=== PATIENT | male | born 1975 | race Hispanic/Latino ===

== ENCOUNTER 2018-03-11 22:06 | Emergency (ER) | payer OTHER ==
[2018-03-11 23:03] LABS: BASOPHILS % (AUTO) 0.6 % (0.0-5.0); EOSINOPHILS % (AUTO) 0.3 % (0.0-8.0); HEMATOCRIT 41.4 % (42-54); LYMPHOCYTES % (AUTO) 26.7 % (21.0-51.0); MEAN CORPUSCULAR HEMOGLOBIN 31.2 pg (27.0-33.0); MEAN CORPUSCULAR VOLUME 89.1 fL (79-99); MONOCYTES % (AUTO) 9.3 % (3.0-13.0); NEUTROPHILS % (AUTO) 63.1 % (40.0-77.0); NUCLEATED RED BLOOD CELLS 0.1 % (0.0-0.19); PLATELET COUNT (AUTO) 181 K/uL (130-400); RED BLOOD CELL COUNT(AUTO) 4.65 MIL/uL (4.50-6.20); RED CELL DISTRIBUTION WIDTH 12.6 % (11.0-15.5); WHITE BLOOD COUNT (AUTO) 7.9 K/uL (4.8-10.8)
[2018-03-11 23:14] LABS: INR 0.95 (0.85-1.15); PARTIAL THROMBOPLASTIN TIME 30.1 SEC (26.3-35.5)
[2018-03-11 23:38] LABS: CREATININE 1.1 mg/dL (0.5-1.5); POTASSIUM 3.4 mmol/L (3.5-5.1)
[2018-03-11 23:44] LABS: ALBUMIN 3.5 g/dL (3.5-5.0); BILIRUBIN,TOTAL 0.3 mg/dL (0.2-1.0); TOTAL PROTEIN, SERUM 7.2 g/dL (6.0-8.3)
[2018-03-12] MEDS ORDERED: KETOROLAC TROMETHAMINE 30MG/ML ONE (00:15)
== END 2018-03-12 01:18 | disposition home or self-care (01) ==
LOC: EDH 22:06
DX: M79.631 Pain in right forearm (principal); I10 Essential (primary) hypertension; I48.91 Unspecified atrial fibrillation; Z79.01 Long term (current) use of anticoagulants
CPT/HCPCS: 36415; 71045; 73080; 80053; 82550; 84484; 85025; 85610; 85730; 93005; 93971; 99284; J1885

== ENCOUNTER 2018-05-30 18:20 | Emergency (ER) | payer OTHER ==
[2018-05-30] MEDS ORDERED: ASPIRIN 325 MG TABLET ONE (18:46)
[2018-05-30 19:07] LABS: BASOPHILS % (AUTO) 1.1 % (0.0-5.0); EOSINOPHILS % (AUTO) 0.3 % (0.0-8.0); HEMATOCRIT 44.1 % (42-54); LYMPHOCYTES % (AUTO) 23.4 % (21.0-51.0); MEAN CORPUSCULAR HEMOGLOBIN 30.4 pg (27.0-33.0); MEAN CORPUSCULAR HGB CONC 34.1 g/dL (32.0-36.0); MEAN CORPUSCULAR VOLUME 89.3 fL (79-99); MONOCYTES % (AUTO) 6.3 % (3.0-13.0); NEUTROPHILS % (AUTO) 68.9 % (40.0-77.0); NUCLEATED RED BLOOD CELLS 0.1 % (0.0-0.19); PLATELET COUNT (AUTO) 193 K/uL (130-400); RED BLOOD CELL COUNT(AUTO) 4.94 MIL/uL (4.50-6.20); RED CELL DISTRIBUTION WIDTH 13.1 % (11.0-15.5); WHITE BLOOD COUNT (AUTO) 5.6 K/uL (4.8-10.8)
[2018-05-30 19:13] LABS: CREATININE 1.2 mg/dL (0.5-1.5); POTASSIUM 3.7 mmol/L (3.5-5.1)
[2018-05-30 19:17] LABS: INR 0.95 (0.85-1.15); PARTIAL THROMBOPLASTIN TIME 31.8 SEC (26.3-35.5)
[2018-05-30 19:37] LABS: ALBUMIN 3.9 g/dL (3.5-5.0); BILIRUBIN,TOTAL 0.5 mg/dL (0.2-1.0); TOTAL PROTEIN, SERUM 7.9 g/dL (6.0-8.3)
== END 2018-05-30 21:31 | disposition home or self-care (01) ==
LOC: EDH 18:20
DX: R07.2 Precordial pain (principal); I48.91 Unspecified atrial fibrillation; I10 Essential (primary) hypertension
CPT/HCPCS: 36415; 71045; 80053; 82550; 83874; 83880; 84484; 85025; 85610; 85730; 93005

== ENCOUNTER 2024-08-13 20:58 | Inpatient (IN) | payer OTHER ==
[~2024-08-13] VITALS: Ht 175.3 cm; Wt 196.9 kg
[2024-08-13 21:37] LABS: BASOPHILS # (AUTO) 0.03 K/uL (0.00-0.20); BASOPHILS % (AUTO) 0.5 % (0.0-5.0); EOSINOPHILS # (AUTO) 0.09 K/uL (0.00-0.70); EOSINOPHILS % (AUTO) 1.6 % (0.0-8.0); HEMATOCRIT 43.1 % (42-54); IMMATURE GRANULOCYTE ABSOLUTE 0.01 K/uL (0-1); LYMPHOCYTES % (AUTO) 17.6 % (21.0-51.0); MEAN CORPUSCULAR HEMOGLOBIN 29.7 pg (27.0-33.0); MEAN CORPUSCULAR HGB CONC 32.5 g/dL (32.0-36.0); MEAN CORPUSCULAR VOLUME 91.3 fL (79-99); MONOCYTES # (AUTO) 0.4 K/uL (0.1-1.0); MONOCYTES % (AUTO) 7.7 % (3.0-13.0); NEUTROPHILS % (AUTO) 72.4 % (40.0-77.0); PLATELET COUNT (AUTO) 205 K/uL (130-400); RED BLOOD CELL COUNT(AUTO) 4.72 MIL/uL (4.50-6.20); RED CELL DISTRIBUTION WIDTH 13.2 % (11.0-15.5); WHITE BLOOD COUNT (AUTO) 5.5 K/uL (4.8-10.8)
--- NOTE | 2024-08-13 21:49 | EKG ---
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
[2024-08-13 21:52] LABS: POTASSIUM 3.7 mmol/L (3.5-5.1)
--- NOTE | 2024-08-13 22:25 | ERN ---
General Chief Complaint: Other Problems Stated Complaint: LIGHT HEADED, HTN AT HOME APPROX 2030 Time Seen by MD: 21:09 Time Seen by Midlevel: 21:09 Source: patient History of Present Illness Initial Comments The patient is a morbidly obese 48-year-old male with a past medical history of atrial fibrillation, hypertension, and sleep apnea presenting to the emergency department for evaluation of dizziness and high blood pressure. The patient states he was watching TV when he became dizzy. He proceeded to check his blood pressure and it was over 180 systolic so he decided to report to the ER for further evaluation. On arrival he does report feeling slightly improved. Current medications include lisinopril and Eliquis 2.5 mg twice a day. Allergies: Coded Allergies: No Known Allergies (Unverified Allergy, Unknown, 11/26/18) Past Medical History Past Medical History: A-Fib, Hypertension, Other Medical History Other: SLEEP APNEA Past Surgical History: None ROS Dictation CONSTITUTIONAL: Negative except for HPI HEAD/FACE: Negative except for HPI EENT: Negative except for HPI RESPIRATORY: Negative except for HPI GASTROINTESTINAL/ABDOMINAL: Negative except for HPI GENITOURINARY: Negative except for HPI MUSCULOSKELETAL: Negative except for HPI INTEGUMENTARY: Negative except for HPI NEUROLOGICAL/PSYCH: Negative except for HPI HEMATOLOGIC/LYMPHATIC: Negative except for HPI All Systems Negative, Except as noted above. 13 point review of systems assessed and all negative except for above. Physical Exam Physical Exam Dictation Vital Signs reviewed General Appearance: Alert, oriented x 3, no acute distress, well developed, nourished. Head and Face: non-traumatic. Eyes: PERRL, pink conjunctivas, eyelid no trauma, anterior chamber with arcus senilis. Ears: Pinnas intact and no signs of trauma or erythema ear canals clear and no discharge TM no erythema Nose: No discharge, no bleeding. Oropharynx: Mouth normal, tongue pink, pharynx clear,no erythema, tonsils no exudates, no abscesses noted, mucous membrane moist Neck: Supple, non-tender, no thyromegaly, no masses, no JVD, no bruits Breast:Deferred Chest:No tenderness, no crepitus, no paradoxical movement, no retractions Lungs:Clear, well-ventilated, symmetric, no rales, no wheezing, no rhonchi, no stridor, good breath sounds bilaterally Heart: Regular rate, regular rhythm, no murmur, no gallops Vascular: no peripheral edema, Abdomen: Soft, positive bowel sounds, nondistended, no guarding, nontender, no rebound, no masses no hepatomegaly, no splenomegaly, no Cook's sign, no hernias. Rectal: Deferred Genital: Deferred Neurological: Normal speech, motor function intact, sensory function intact Musculoskeletal: Neck nontender, full range of motion, back nontender, full range of motion, Extremities: nontender, full range of motion Skin: Color pink, dry, no turgor, no rash, no lacerations, no abrasions, no contusions. Lymphatic: Deferred Results Laboratory and Microbiology Lab and Micro Result Laboratory Tests Test 08/13/24 21:30 White Blood Count 5.5 K/uL (4.8-10.8) Red Blood Count 4.72 MIL/uL (4.50-6.20) Hemoglobin 14.0 g/dL (14.0-18.0) Hematocrit 43.1 % (42-54) Mean Corpuscular Volume 91.3 fL (79-99) Mean Corpuscular Hemoglobin 29.7 pg (27.0-33.0) Mean Corpuscular Hemoglobin Concent 32.5 g/dL (32.0-36.0) Red Cell Distribution Width 13.2 % (11.0-15.5) Platelet Count 205 K/uL (130-400) Mean Platelet Volume 10.2 fL (7.5-10.5) Immature Granulocyte % (Auto) 0.2 % (0-1) Neutrophils (%) (Auto) 72.4 % (40.0-77.0) Lymphocytes (%) (Auto) 17.6 % (21.0-51.0) L Monocytes (%) (Auto) 7.7 % (3.0-13.0) Eosinophils (%) (Auto) 1.6 % (0.0-8.0) Basophils (%) (Auto) 0.5 % (0.0-5.0) Neutrophils # (Auto) 4.0 K/uL (1.8-7.7) Lymphocytes # (Auto) 1.0 K/uL (1.0-4.8) Monocytes # (Auto) 0.4 K/uL (0.1-1.0) Eosinophils # (Auto) 0.09 K/uL (0.00-0.70) Basophils # (Auto) 0.03 K/uL (0.00-0.20) Absolute Immature Granulocyte (auto 0.01 K/uL (0-1) Nucleated Red Blood Cells 0.0 % (0.0-0.19) Sodium Level 142 mmol/L (136-145) Potassium Level 3.7 mmol/L (3.5-5.1) Chloride Level 107 mmol/L (101-111) Carbon Dioxide Level 33 mmol/L (21-32) H Blood Urea Nitrogen 12 mg/dL (7-18) Creatinine 1.0 mg/dL (0.5-1.3) Glomerular Filtration Rate Calc 94 mL/min (>90) Random Glucose 173 mg/dL (70-105) H Total Calcium 8.4 mg/dL (8.5-10.1) L Magnesium Level 2.00 mg/dL (1.80-2.40) Troponin I High Sensitivity 120 ng/L (4-75) *H Labs Reviewed?: Yes MDM MDM: The patient is a morbidly obese 48-year-old male with a past medical history of atrial fibrillation, hypertension, and sleep apnea presenting to the emergency department for evaluation of dizziness and high blood pressure. The patient states he was watching TV when he became dizzy. He proceeded to check his blood pressure and it was over 180 systolic so he decided to report to the ER for further evaluation. On arrival he does report feeling slightly improved. Current medications include lisinopril and Eliquis 2.5 mg twice a day. Blood pressure on arrival was 118/74. Heart rate was 83 beats per minute. O2 saturation is 97% on room air. On physical examination the patient is in no acute distress. Neurological examination is unremarkable. His initial EKG showed normal sinus rhythm with a ventricular rate of 72 beats per minute. No bundle branch blocks, no ST elevations. CBC shows no leukocytosis, no anemia, no thrombocytopenia. Chemistries are stable. Initial troponin is elevated at 120. We will admit for elevated troponin. We will need to trend and consult Cardiology in the morning. Differential diagnosis: Acute coronary syndrome, cardiac arrhythmia, Rationale: Tests considered and ordered secondary to shared decision making include: Previous outside records reviewed: Old ER visits. Risk of complication and/or morbidity or mortality of patient management: None Medications-Per medication reconciliation Need for hospitalization: Patient does meet criteria for hospitalization. Need for emergency major/minor surgery: No There are no social concerns with this patient. Prescription drug management Prescriptions will include symptomatic care Patient's prior external medical records from other ER visits were reviewed by me as indicated. Prior testing and results from previous visits were reviewed. Prior tests were taken into account with medical decision making and resource utilization, independent historian/historians were used to obtain complete medical history. I independently interpreted the test that were performed, results were reviewed by me and considered findings on radiology if ordered. Medical management and examination interpretation discussions were had by me with other qualified healthcare professionals as indicated for the patient's care. ED Course Orders Procedure Category Date Status Time Cbc With Differential LAB 08/13/24 Complete 21:20 Basic Metabolic Panel LAB 08/13/24 Complete 21:20 Troponin I High LAB 08/13/24 Complete Sensitivity 21:20 Magnesium LAB 08/13/24 Complete 21:20 12 Lead Ekg Tracing- EKG 08/13/24 Complete Technical 21:20 Vital Signs Date Time Temp Pulse Resp B/P (MAP) Pulse Ox O2 Delivery O2 Flow Rate FiO2 08/13/24 21:37 98.2 72 18 162/89 96 Room Air* 0 21 08/13/24 21:00 98.8 83 16 118/74 97 Room Air 0 DX & DISP Disposition: Inpatient Decision to Admit Date: August 13, 2024 Departure Impression: Primary Impression: Elevated troponin Condition: Stable Referrals: SELF,REFERRAL (PCP) Time of Disposition: 22:24 I have reviewed the case, and I agree with, Diagnosis and Plan I performed the substantive portion of the visit. I have reviewed and personally made and approve the management plan that is documented in the note by myself or the JEFFERSON. I acknowledge for responsibility for the patient's management plan. ARIELLE FONSECA August 13, 2024 22:25
[2024-08-13] MEDS ORDERED: morPHINE 4 MG SYG IVP PRN (23:00)
[2024-08-13] MEDS ORDERED: ondanSETRON 4MG INJ IV PRN (23:00)
[2024-08-13] MEDS ORDERED: acetaMINOPHEN 325 MG TAB PO PRN (23:00)
[2024-08-13] MEDS ORDERED: hydrALAZine 20MG/ML VIAL IV PRN (23:00)
--- NOTE | 2024-08-13 23:03 | HP ---
History of Present Illness Reason for Visit: lightheadedness History of Present Illness Mr. Cosby is a 48-year-old male that was seen and examined today on 08/13/2024. Patient is a good historian of personal health Patient states that he came to the emergency department with a chief complaint of lightheadedness. Onset was 1900. Location is to head. Duration is constant, dizziness waxes and wanes. Character is described as, " unbalanced. "There was no alleviating factors. There was no aggravating factors. Patient denies any associated chest pain or shortness and breath. Today in the emergency department CBC unremarkable, chemistry unremarkable, troponin mildly elevated at 120, no urinalysis has been collected or sent to lab. No diagnostic radiographic imaging has been ordered. Emergency room physician recommended that patient be admitted with a diagnosis of elevated troponin Past Medical History ADDITIONAL PAST MEDICAL HISTORY: [Atrial fibrillation, hypertension, ZEYNEP] SOCIAL HISTORY: [Negative for smoking, alcohol use, drug use. Patient lives with his mom Lazara Cosby. Patient is typically independent of all his ADLs. Patient denies difficulty pain is bills. Patient has good access to health care through his insurance. 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 Dyspnea, Edema, Other Gastrointestinal: No: Nausea, Vomiting, Abdominal Pain, Diarrhea, Constipation, Melena, Hematochezia, Other Genitourinary: No Dysuria, No Frequency, No Incontinence, No Hematuria, No Retention, No Other Musculoskeletal: No: other, neck pain, shoulder pain, arm pain, back pain, hand pain, leg pain, foot pain Skin: No Urticaria, No Rash, No Other Neurological: No: Weakness, Numbness, Incoordination, Change in speech, Confusion, Seizures, Other Allergies: Coded Allergies: No Known Allergies (Unverified Allergy, Unknown, 11/26/18) Exam Vital Signs Vital Signs Date Time Temp Pulse Resp B/P (MAP) Pulse Ox O2 Delivery O2 Flow Rate FiO2 08/13/24 21:37 98.2 72 18 162/89 96 Room Air* 0 21 General Appearance: Alert, Oriented X3, Cooperative, No acute distress HEENT: Atraumatic, EOMI, Mucous membr. moist/pink Respiratory: Clear to auscultation, Normal air movement, NL respiratory effort Cardiovascular: Regular rate, Regular rhythm, Normal S1, Normal S2 Abdominal: Normal bowel sounds, Soft, No tenderness Extremities: No edema Skin: No rashes, No breakdown, No significant lesion Neuro: Normal gait, Normal speech, Strength at 5/5 X4 ext, Sensation intact, Cranial nerves 3-12 NL Psych/Mental Status: Mental status NL, Mood NL, Thoughts/Content NL Assessment/Plan ASSESSMENT: [ Elevated troponin, POA Hypertension Atrial fibrillation ZEYNEP] PLAN: [ Admit patient to medical floor as inpatient status. Place patient on telemetry monitoring. Elevated troponin: Administer aspirin 162 mg by mouth times 1 dose Continue aspirin 81 mg by mouth once daily Nitropaste 0.5 inches anterior chest wall every 8 hours Trend troponin every 6 hours x 3 sets Supplemental oxygen to maintain O2 saturation greater than 92% Consult cardiology if any elevation in troponin or troponin uptrending Hypertension, atrial fibrillation, ZEYNEP: Consider resuming home medications once they have been reconciled. For now CPAP per home settings Hydralazine 10 mg IV every 4 hours for systolic blood pressure greater than 160 mmHg Metoprolol 12.5 mg by mouth twice daily Administer metoprolol 5 mg IV every 5 minutes as needed for AFib RVR with heart rate greater than 120 beats per minute max three doses. GI prophylaxis, famotidine DVT prophylaxis, resume patient's home dose of DOAC Eliquis 2.5 mg twice daily ADVANCED CARE PLANNING 1. Which of the following were discussed? Hospice Care - Yes Therapeutic options - Yes Advance Directives - Yes -patient states that he does not have any advance directives in place at this time, however his mom can make decisions for him if he becomes unable. Other discussions - patient wishes to remain a full code at this time 2. Discussed with who? Patient 3. Voluntary nature of this service was explained to the patient? Yes 4. Amount of time spent - _ 16 minutes 5. Reviewed by Physician? (if this service was performed by NPP) Yes This document was generated in part using voice recognition software, occasional wrong word or sound alike substitutions may have occurred due to the inherent limitations of voice recognition software. Read the chart carefully and recognize using context, where the substitutions have occurred. Although every effort was made to edit the content, panel monitor and typing errors may occur ATTESTATION BY PHYSICIAN I have seen and examined the patient. I reviewed the documentation, medical decision making, and treatment plan as noted by the mid-level provider above. I agree with the findings and plan of care. WOO ALBERTO [facility] August 13, 2024 23:03
[2024-08-13] MEDS ORDERED: metoPROLOL tartRATE 1 MG/ML 5ML VIAL IV PRN (23:30)
[2024-08-13] MEDS: PHARMACY COMMUNICATION MISC ONE (23:49)
--- NOTE | 2024-08-13 23:52 | NUR ---
REPORT GIVEN TO TYRON CHICAS AT THIS TIME
[2024-08-13] MEDS: NITROGLYCERIN 1GM OINT 1 INCH/1GM TD SCH (23:53)
[2024-08-13] MEDS: ASPIRIN 81MG CHEW TAB PO ONE (23:53)
[2024-08-14] VITALS (7 sets, daily range): BP systolic 139–174; BP diastolic 79–107; PULSE 58–90; RESP 20–22; TEMP 97.8–98.8; O2SAT 98
[2024-08-14] MEDS ORDERED: APIX5TAB PO (02:32)
[2024-08-14] MEDS ORDERED: LISI40TA9 PO (02:32)
[2024-08-14] MEDS ORDERED: METO50 PO (02:32)
[2024-08-14] MEDS ORDERED: HYDR25TA PO (02:32)
[2024-08-14] MEDS ORDERED: HYDR50TA36 PO (02:32)
[2024-08-14] MEDS ORDERED: AMLO-258 PO (02:32)
[2024-08-14 03:01] LABS: APPEARANCE,URINE CLEAR (CLEAR); BILIRUBIN,URINE NEGATIVE (NEGATIVE); COLOR,URINE LIGHT-YELLOW (YELLOW); GLUCOSE, URINE (UA) NEGATIVE (NEGATIVE); KETONES,URINE NEGATIVE (NEGATIVE); LEUKOCYTE ESTERASE ,URINE NEGATIVE Leu/uL (NEGATIVE); NITRATE,URINE NEGATIVE (NEGATIVE); OCCULT BLOOD,URINE NEGATIVE (NEGATIVE); PROTEIN,URINE NEGATIVE (NEGATIVE); UROBILINOGEN,URINE 3 mg/dL (0.2-1.0)
[2024-08-14 03:07] LABS: ADD UA MICROSCOPIC YES
[2024-08-14 03:08] LABS: AMPHET/METH SCREEN,URINE NEGATIVE (NEGATIVE); BARBITURATE SCREEN, URINE NEGATIVE (NEGATIVE); BENZODIAZEPINES SCREEN,URINE NEGATIVE (NEGATIVE); CANNABINOID SCREEN,URINE NEGATIVE (NEGATIVE); COCAINE SCREEN,URINE NEGATIVE (NEGATIVE); MUCUS,URINE RARE LPF (None Seen); OPIATE SCREEN,URINE NEGATIVE (NEGATIVE); PHENCYCLIDINE SCREEN,URINE NEGATIVE (NEGATIVE); RBC,URINE 0-1 /HPF (0-1); WBC,URINE 0-1 /HPF (0-1)
[2024-08-14 06:27] LABS: BASOPHILS # (AUTO) 0.03 K/uL (0.00-0.20); BASOPHILS % (AUTO) 0.5 % (0.0-5.0); EOSINOPHILS # (AUTO) 0.06 K/uL (0.00-0.70); HEMATOCRIT 41.3 % (42-54); IMMATURE GRANULOCYTE ABSOLUTE 0.02 K/uL (0-1); LYMPHOCYTES # (AUTO) 1.6 K/uL (1.0-4.8); LYMPHOCYTES % (AUTO) 27.3 % (21.0-51.0); MEAN CORPUSCULAR HEMOGLOBIN 29.8 pg (27.0-33.0); MEAN CORPUSCULAR HGB CONC 32.7 g/dL (32.0-36.0); MEAN CORPUSCULAR VOLUME 91.2 fL (79-99); MONOCYTES # (AUTO) 0.6 K/uL (0.1-1.0); MONOCYTES % (AUTO) 9.6 % (3.0-13.0); NEUTROPHILS # (AUTO) 3.6 K/uL (1.8-7.7); NEUTROPHILS % (AUTO) 61.3 % (40.0-77.0); PLATELET COUNT (AUTO) 214 K/uL (130-400); RED BLOOD CELL COUNT(AUTO) 4.53 MIL/uL (4.50-6.20); RED CELL DISTRIBUTION WIDTH 13.3 % (11.0-15.5); WHITE BLOOD COUNT (AUTO) 5.8 K/uL (4.8-10.8)
[2024-08-14 06:49] LABS: CREATININE 0.8 mg/dL (0.5-1.3); MAGNESIUM 2.2 mg/dL (1.80-2.40); PHOSPHORUS 3.3 mg/dL (2.5-4.9); POTASSIUM 3.7 mmol/L (3.5-5.1)
--- NOTE | 2024-08-14 08:27 | HMCIMG ---
CHEST 1VW HISTORY: Dizziness COMPARISON: August 26, 2018 FINDINGS: A frontal projection of the chest was obtained. Prominent interstitial markings are seen with possible superimposed infiltrates. The heart is enlarged. Degenerative changes are seen. No evidence of aortic calcification is seen. IMPRESSION: 1. Prominent interstitial markings are seen with possible superimposed infiltrates.
[2024-08-14] MEDS: ASPIRIN 81 MG EC TAB PO SCH (09:36)
[2024-08-14] MEDS: metoPROLOL tartRATE 25 MG TAB PO SCH (09:36)
[2024-08-14] MEDS: FAMOTIDINE 20MG TAB PO SCH (09:36)
[2024-08-14] MEDS: APIXaban 5 MG TABLET PO SCH (09:37)
--- NOTE | 2024-08-14 13:15 | PN ---
[facility] PROGRESS NOTE Date of Service: August 14, 2024 Time of Service: 13:14 SUBJECTIVE: [ ] 08/14/24 patient was seen and examined. Case discussed with RN and family by the bedside. He feels slightly better blood pressure is under better control. Ms. Troponin is slightly elevated and we will have Cardiology evaluate the patient for optimization REVIEW OF SYSTEMS CONSTITUTIONAL: Denies fevers, chills, or night sweats. No unintentional weight loss reported. NEUROLOGICAL: Denies headache, amaurosis fugax, motor weakness, sensory deficit, vertigo/spinning sensation, gait abnormalities, or tremors. ENT: No hearing loss, otalgia, otorrhea, rhinitis, rhinorrhea, hoarseness, or sore throat. CARDIOVASCULAR: Denies any exertional angina, dyspnea on exertion, orthopnea, paroxysmal nocturnal dyspnea, palpitations, life-threatening arrhythmias, claudication. PULMONARY: Denies any shortness of breath, cough, phlegm/sputum, hemoptysis, pleuritic chest pain. SLEEP: Denies morning headaches, daytime somnolence or napping. Denies difficulty falling asleep, staying asleep, waking from sleep. Denies knowledge of snoring. GASTROINTESTINAL: Denies any type of dysphagia to either liquids or solids. Denies nausea, vomiting, pyrosis, early satiety, abdominal pain, diarrhea, constipation, or changes in stool consistency or caliber. Denies coffee-ground emesis, hematemesis, hematochezia, or melanotic stools. GENITOURINARY: Denies frequency, urgency, nocturia, hematuria or incontinence (Storage/Irritative symptoms.) Low urinary stream, straining to void, urinary i ntermittency or hesitancy, splitting of the voiding stream, terminal dribbling. ENDOCRINOLOGIC: Denies polyuria, polydipsia, polyphagia or heat/cold intolerances. HEMATOLOGIC: Denies thrombophilia/previous clots, or coagulopathy/bleeding disorders. ONCOLOGIC: Denies personal history of malignancy. DERMATOLOGIC: Denies rashes or pruritus. PSYCHIATRIC: Denies any suicidal or homicidal ideation. Denies hallucinations. PHYSICAL EXAM GENERAL APPEARANCE: The patient is awake, alert, and oriented, in no acute cardiopulmonary distress. NEUROLOGICAL: Cranial nerves II-XII grossly intact. Motor is 5/5 in bilateral upper and lower extremities proximal to distal. No sensory deficits. HEENT: Face is symmetric. Pupils are equal and reactive. Extraocular movements are intact. NECK: Supple. No JVD. No thyromegaly. No submental, submandibular, pre- /postauricular, occipital or supraclavicular lymphadenopathy. CHEST: Normal chest expansion. No Telemetry. LUNGS: Absence of any rales, rhonchi or any wheezing. CARDIOVASCULAR: Regular. S1 and S2 normal. No appreciable rubs, murmurs or gallops. ABDOMEN: Soft, nontender, and nondistended. There is no rebound, voluntary guarding, or rigidity. : Deferred. No Green. EXTREMITIES: Non-edematous and not cyanotic. No clubbing. Good capillary refill. SKIN: No skin breakdown. Vital Signs (last 8hr) Date Time Temp Pulse Resp B/P (MAP) Pulse Ox O2 Delivery O2 Flow Rate FiO2 08/14/24 11:57 98.6 74 22 140/80 97 Room Air 21 08/14/24 08:00 98 Room Air* 0 21 08/14/24 07:25 98.2 60 22 139/79 99 Room Air 21 LABS: Laboratory: Test 08/14/24 09:17 08/14/24 05:49 08/14/24 02:45 Range/Units Troponin I High Sensitivity 111 *H 4-75 ng/L White Blood Count 5.8 4.8-10.8 K/uL Red Blood Count 4.53 4.50-6.20 MIL/uL Hemoglobin 13.5 L 14.0-18.0 g/dL Hematocrit 41.3 L 42-54 % Mean Corpuscular Volume 91.2 79-99 fL Mean Corpuscular Hemoglobin 29.8 27.0-33.0 pg Mean Corpuscular Hemoglobin Concent 32.7 32.0-36.0 g/dL Red Cell Distribution Width 13.3 11.0-15.5 % Platelet Count 214 130-400 K/uL Mean Platelet Volume 11.0 H 7.5-10.5 fL Immature Granulocyte % (Auto) 0.3 0-1 % Neutrophils (%) (Auto) 61.3 40.0-77.0 % Lymphocytes (%) (Auto) 27.3 21.0-51.0 % Monocytes (%) (Auto) 9.6 3.0-13.0 % Eosinophils (%) (Auto) 1.0 0.0-8.0 % Basophils (%) (Auto) 0.5 0.0-5.0 % Neutrophils # (Auto) 3.6 1.8-7.7 K/uL Lymphocytes # (Auto) 1.6 1.0-4.8 K/uL Monocytes # (Auto) 0.6 0.1-1.0 K/uL Eosinophils # (Auto) 0.06 0.00-0.70 K/uL Basophils # (Auto) 0.03 0.00-0.20 K/uL Absolute Immature Granulocyte (auto 0.02 0-1 K/uL Nucleated Red Blood Cells 0.0 0.0-0.19 % Sodium Level 140 136-145 mmol/L Potassium Level 3.7 3.5-5.1 mmol/L Chloride Level 106 101-111 mmol/L Carbon Dioxide Level 29 21-32 mmol/L Blood Urea Nitrogen 11 7-18 mg/dL Creatinine 0.8 0.5-1.3 mg/dL Glomerular Filtration Rate Calc 111 >90 mL/min Random Glucose 113 H 70-105 mg/dL Total Calcium 8.7 8.5-10.1 mg/dL Phosphorus Level 3.3 2.5-4.9 mg/dL Magnesium Level 2.20 1.80-2.40 mg/dL Urine Color LIGHT-YELLOW YELLOW Urine Appearance CLEAR CLEAR Urine pH 8.0 5.0-8.0 Urine Specific [place] 1.017 1.001-1.031 Urine Protein NEGATIVE NEGATIVE mg/dL Urine Glucose (UA) NEGATIVE NEGATIVE mg/dL Urine Ketones NEGATIVE NEGATIVE mg/dL Urine Occult Blood NEGATIVE NEGATIVE Urine Nitrate NEGATIVE NEGATIVE Urine Bilirubin NEGATIVE NEGATIVE mg/dL Urine Urobilinogen 3 H 0.2-1.0 mg/dL Urine Leukocyte Esterase NEGATIVE NEGATIVE Jose Carlos/uL Urine RBC 0-1 0-1 /HPF Urine WBC 0-1 0-1 /HPF Urine Bacteria None None Seen /HPF Urine Opiates Screen NEGATIVE NEGATIVE Urine Barbiturates Screen NEGATIVE NEGATIVE Urine Phencyclidine Screen NEGATIVE NEGATIVE Urine Amphetamines Screen NEGATIVE NEGATIVE Urine Benzodiazepines Screen NEGATIVE NEGATIVE Urine Cocaine Screen NEGATIVE NEGATIVE Urine Marijuana (THC) Screen NEGATIVE NEGATIVE Current Medications Medications (Trade) Dose Ordered Sig/Merlin Route PRN Reason Start Time Stop Time Status Last Admin Dose Admin Acetaminophen (TYLenol 325MG TAB) 650 mg Q6H PRN PO TEMPERATURE GREATER THAN 101.5 08/13/24 23:00 09/12/24 22:59 Apixaban (EliquIS) 5 mg BID PO 08/14/24 09:00 09/13/24 08:59 08/14/24 09:37 5 MG Aspirin (Aspirin 81mg Ec Tab) 81 mg DAILY PO 08/14/24 09:00 09/13/24 08:59 08/14/24 09:36 81 MG Famotidine (Pepcid 20mg Tab) 20 mg DAILY PO 08/14/24 09:00 09/13/24 08:59 08/14/24 09:36 20 MG Hydralazine HCl (APRESOLine 20MG INJ) 10 mg Q6H PRN IV For:SBP above 160;DBP above 90 08/13/24 23:00 09/12/24 22:59 Metoprolol Tartrate (loprESSOR) 5 mg Q5MIN PRN IV AFIB RVR HR > 120 BPM 08/13/24 23:30 Metoprolol Tartrate (loprESSOR) 12.5 mg BID PO 08/14/24 09:00 09/13/24 08:59 08/14/24 09:36 12.5 MG Morphine Sulfate (morPHINE 4MG SYG) 4 mg Q4H PRN IVP SEVERE PAIN (7-10) 08/13/24 23:00 08/20/24 22:59 Nitroglycerin (Nitroglycerin 1gm Oint) 0.5 inch Q8H TD 08/13/24 23:00 09/12/24 22:59 08/14/24 09:36 0.5 INCH Ondansetron HCl (zoFRAN 4MG INJ) 4 mg Q6H PRN IV NAUSEA/VOMITING 08/13/24 23:00 09/12/24 22:59 DIAGNOSTICS / RADIOLOGY: [ ] ASSESSMENT: [ ] PLAN: [ ] KAMERON BENSON MD August 14, 2024 13:15
--- NOTE | 2024-08-14 13:54 | NUR ---
DR. GALDAMEZ MADE AWARE OF CARDIOLOGY CONSULT.
--- NOTE | 2024-08-14 18:56 | NUR ---
D/C PLAN CM spoke to patient regarding d/c planning. Patient reports he is independent with ADLs and lives with mother and son. Denies having any home services or DME. Plan to home. No needs verbalized. Addendum: 08/14/24 at 1902 by KRYSTAL HERNÁNDEZ CM Amended: Links added.
--- NOTE | 2024-08-14 19:38 | CONS ---
REASON FOR CONSULTATION: To evaluate AFib and dizziness. HISTORY OF PRESENT ILLNESS: The patient is a middle-aged, morbidly obese gentleman who has a history of AFib. He has been on Eliquis for a few years now. I saw him in the office about 2 years ago. At that time, he was supposed to get a monitor and a 2D echo done, but the patient never showed up for his tests. He came in yesterday because of a certain dizzy spell. He felt like he was disoriented and was going to pass out, but really did not have a katja syncope. He denies any chest pain or shortness of breath. He has been in the hospital. He has been in normal sinus rhythm ever since and denies any chest pain or shortness of breath. He tells me he can walk up to 10-15 minutes easily without any problems. REVIEW OF SYSTEMS: GENERAL: No history of weight loss or weight gain. LUNGS: No history of cough or sputum. CARDIOVASCULAR: As above. HOME MEDICATIONS: Listed in the chart. ALLERGIES: No known drug allergies. SOCIAL HISTORY: Denies smoking, alcohol, or drugs. FAMILY HISTORY: Noncontributory. PHYSICAL EXAMINATION: GENERAL: A middle-aged male. Alert and oriented x 3. No pallor, no cyanosis, no jaundice, no lymphadenopathy, no pitting edema. The patient is morbidly obese. VITAL SIGNS: Heart rate is 70, blood pressure is 140/70. HEENT: Normocephalic, atraumatic. Pupils are equal, reactive to light. NECK: Supple. No thyromegaly, no carotid bruit, no neck masses. LUNGS: Mostly clear to percussion and auscultation. CARDIOVASCULAR: Peripheral pulses are diminished. No groin bruit, no abdominal bruit, no carotid bruit, no JVD. S1, S2 heard. No S3, no S4, no murmurs, no rubs, no other adventitious sounds. ABDOMEN: Benign. TOWER SUPERVISOR: Nonfocal examination. EXTREMITIES: No pitting edema. FINAL IMPRESSION: * History of paroxysmal atrial fibrillation. * History of hypertension. * Dizziness/presyncope, rule out cardiac related ischemic event. * Borderline troponin I. * Hypertension, uncontrolled when he came in, but controlled now. RECOMMENDATIONS: * I will do a 2D echo on him. * I will schedule him for a Lexiscan to evaluate him for underlying CAD. * We will keep him on the monitor for now. * We will continue Eliquis and stop aspirin. * Further recommendations will be based on results of the above. TID: [id number] RECEIPT: [id number]
[2024-08-15] VITALS (7 sets, daily range): BP systolic 143–173; BP diastolic 78–98; PULSE 55–90; RESP 18–20; TEMP 97.6–98.4; O2SAT 96
[2024-08-15 05:51] LABS: BASOPHILS # (AUTO) 0.03 K/uL (0.00-0.20); BASOPHILS % (AUTO) 0.5 % (0.0-5.0); EOSINOPHILS # (AUTO) 0.04 K/uL (0.00-0.70); EOSINOPHILS % (AUTO) 0.7 % (0.0-8.0); HEMATOCRIT 40.6 % (42-54); IMMATURE GRANULOCYTE ABSOLUTE 0.02 K/uL (0-1); LYMPHOCYTES # (AUTO) 1.4 K/uL (1.0-4.8); LYMPHOCYTES % (AUTO) 23.4 % (21.0-51.0); MEAN CORPUSCULAR HEMOGLOBIN 29.8 pg (27.0-33.0); MEAN CORPUSCULAR VOLUME 90.2 fL (79-99); MONOCYTES # (AUTO) 0.5 K/uL (0.1-1.0); MONOCYTES % (AUTO) 8.4 % (3.0-13.0); NEUTROPHILS % (AUTO) 66.7 % (40.0-77.0); PLATELET COUNT (AUTO) 206 K/uL (130-400); RED CELL DISTRIBUTION WIDTH 13.3 % (11.0-15.5)
[2024-08-15 06:22] LABS: ALBUMIN 3.3 g/dL (3.5-5.0); BILIRUBIN,TOTAL 0.6 mg/dL (0.2-1.0); CREATININE 0.9 mg/dL (0.5-1.3); POTASSIUM 3.3 mmol/L (3.5-5.1); TOTAL PROTEIN, SERUM 7.4 g/dL (6.0-8.3)
[2024-08-15] MEDS ORDERED: REGADENOSON 0.4 MG/5 ML PF SYG IVP ONE (07:59)
--- NOTE | 2024-08-15 12:38 | HMCSR ---
APPROVED REPORT EXAM: Two-dimensional and M-mode echocardiogram with Doppler and color Doppler. INDICATION ICD: elevated troponins 2D Dimensions RVDd4.0 cmLVEF(%)54.3 (>50%)LVED Vol(simp.)170.0 mL IVSd1.1 (0.7-1.1cm)FS(%)28 %LVES Vol(simp.)56.0 mL LVDd5.5 (3.8-5.6cm)LA (2D)4.7 (1.6-4.0cm)LVEF(%, simp.)67 % PWd1.3 (0.7-1.1cm)Ao Root(2D)2.9 (2.0-3.7cm)LA ESV INDEX (BP)31.65 mL/m2 LVDs3.9 (2.5-4.0cm)LVOT diam2.5 (1.8-2.4cm) IVC diam2.0 cm Deformation Strain Apical 4-19.2 % Apical 2-20.0 % Apical 3-15.4 % Global Strain-18.2 % M-Mode Dimensions EPSS0.6 cm LA (MM)4.8 (1.6-4.0cm) Ao Root(MM)3.3 (2.0-3.7cm) Aortic Valve AoV Vmax1.2 m/Zaki Peak GR5.6 mmHgLVOT Vmax0.9 m/s AoV VTI0.3 mAo Mean GR3.3 mmHgLVOT VTI0.21 m TORIE (VMAX)3.82 cm2AVA (VTI) 3.8 cm2 Mitral Valve MV E Vmax65.8 cm/sDECEL Dewu510 ms MV A Vmax91.7 cm/sP 1/2 T62 ms E/A ratio0.7MVA (PHT)3.5 cm2 TDI E/E' Medial7.8E/E' Lateral6.5 Medial E' Peak V8.47 cm/sLateral E' Peak V10.07 cm/s Tricuspid Valve TR Vmax2.7 m/sRVSP29.3 mmHg TR Peak GR29.3 mmHg Left Ventricle The left ventricle is normal size. There is normal left ventricular wall thickness. LVEF is 65-70%. T he left ventricular diastolic function is normal. Right Ventricle The right ventricle is normal size. The right ventricular systolic function is normal. Atria The left atrium size is normal. The right atrium is mildly dilated. Aortic Valve The aortic valve is normal in structure. No aortic regurgitation is present. There is no aortic valvu lar stenosis. Mitral Valve The mitral valve is normal in structure. There is no evidence of significant mitral regurgitation. Th ere is no mitral valve stenosis. Tricuspid Valve The tricuspid valve is normal in structure. There is trace tricuspid valve regurgitation noted. Pulmonic Valve The pulmonary valve is normal in structure. There is no pulmonic valvular regurgitation. Great Vessels The aortic root is normal in size. The IVC is normal in size and collapses >50% with inspiration. Pericardium There is no pericardial effusion. Conclusion LVEF is 65-70%.
--- NOTE | 2024-08-15 14:38 | DS ---
Discharge Summary Hospital Course Summary: 48-year-old male with past medical history of atrial fibrillation, hypertension(questionable medication compliance), obstructive sleep apnea presented to ED with complaints of lightheadedness. He experienced sudden onset lightheadedness while he was resting after dinner. He experienced subsequent episodes of lightheadedness for the next 1/2 hour. Meantime his blood pressure was 189/99. He denies loss of consciousness, fall, passing out, sweating, chest pain, palpitations at that time. He does not associate lightheadedness with any postural changes or any other aggravating factors. At the time of presentation his temperature is 98.8, pulse rate83 per minute, respiratory rate 16 per minute, blood pressure 118/74, pulse oximetry 97% in room air. Labs at the time of presentation were remarkable for troponin at 120, CRP 12. Troponins trended flat. Cardiology was consulted. Chest x-ray shows prominent interstitial markings. Echo shows preserved ejection fraction. Noemi scans stress test was done. Patient is deemed to be clinically stable at the time of discharge by the big data lead .He is required to follow up at Dr Yoav Taylor's office in a week.. Geriatric Psychiatrist(s): REASON FOR CONSULTATION: To evaluate AFib and dizziness. HISTORY OF PRESENT ILLNESS: The patient is a middle-aged, morbidly obese gentleman who has a history of AFib. He has been on Eliquis for a few years now. I saw him in the office about 2 years ago. At that time, he was supposed to get a monitor and a 2D echo done, but the patient never showed up for his tests. He came in yesterday because of a certain dizzy spell. He felt like he was disoriented and was going to pass out, but really did not have a katja syncope. He denies any chest pain or shortness of breath. He has been in the hospital. He has been in normal sinus rhythm ever since and denies any chest pain or shortness of breath. He tells me he can walk up to 10-15 minutes easily without any problems. REVIEW OF SYSTEMS: GENERAL: No history of weight loss or weight gain. LUNGS: No history of cough or sputum. CARDIOVASCULAR: As above. HOME MEDICATIONS: Listed in the chart. ALLERGIES: No known drug allergies. SOCIAL HISTORY: Denies smoking, alcohol, or drugs. FAMILY HISTORY: Noncontributory. PHYSICAL EXAMINATION: GENERAL: A middle-aged male. Alert and oriented x 3. No pallor, no cyanosis, no jaundice, no lymphadenopathy, no pitting edema. The patient is morbidly obese. VITAL SIGNS: Heart rate is 70, blood pressure is 140/70. HEENT: Normocephalic, atraumatic. Pupils are equal, reactive to light. NECK: Supple. No thyromegaly, no carotid bruit, no neck masses. LUNGS: Mostly clear to percussion and auscultation. CARDIOVASCULAR: Peripheral pulses are diminished. No groin bruit, no abdominal bruit, no carotid bruit, no JVD. S1, S2 heard. No S3, no S4, no murmurs, no rubs, no other adventitious sounds. ABDOMEN: Benign. CHILD SUPPORT OFFICER: Nonfocal examination. EXTREMITIES: No pitting edema. FINAL IMPRESSION: * History of paroxysmal atrial fibrillation. * History of hypertension. * Dizziness/presyncope, rule out cardiac related ischemic event. * Borderline troponin I. * Hypertension, uncontrolled when he came in, but controlled now. RECOMMENDATIONS: * I will do a 2D echo on him. * I will schedule him for a Lexiscan to evaluate him for underlying CAD. * We will keep him on the monitor for now. * We will continue Eliquis and stop aspirin. * Further recommendations will be based on results of the above. Procedure(s): PROCEDURE: ECHO CMP - ECHO 2-D COMPLETE APPROVED REPORT EXAM: Two-dimensional and M-mode echocardiogram with Doppler and color Doppler. INDICATION ICD: elevated troponins 2D Dimensions RVDd 4.0 cm LVEF(%) 54.3 (>50%) LVED Vol(simp.) 170.0 mL IVSd 1.1 (0.7-1.1cm) FS(%) 28 % LVES Vol(simp.) 56.0 mL LVDd 5.5 (3.8-5.6cm) LA (2D) 4.7 (1.6-4.0cm) LVEF(%, simp.) 67 % PWd 1.3 (0.7-1.1cm) Ao Root(2D) 2.9 (2.0-3.7cm) LA ESV INDEX (BP) 31.65 mL/m2 LVDs 3.9 (2.5-4.0cm) LVOT diam 2.5 (1.8-2.4cm) IVC diam 2.0 cm Deformation Strain Apical 4 -19.2 % Apical 2 -20.0 % Apical 3 -15.4 % Global Strain -18.2 % M-Mode Dimensions EPSS 0.6 cm LA (MM) 4.8 (1.6-4.0cm) Ao Root(MM) 3.3 (2.0-3.7cm) Aortic Valve AoV Vmax 1.2 m/s Ao Peak GR 5.6 mmHg LVOT Vmax 0.9 m/s AoV VTI 0.3 m Ao Mean GR 3.3 mmHg LVOT VTI 0.21 m TORIE (VMAX) 3.82 cm2 TORIE (VTI) 3.8 cm2 Mitral Valve MV E Vmax 65.8 cm/s DECEL Time 222 ms MV A Vmax 91.7 cm/s P 1/2 T 62 ms E/A ratio 0.7 MVA (PHT) 3.5 cm2 TDI E/E' Medial 7.8 E/E' Lateral 6.5 Medial E' Peak V 8.47 cm/s Lateral E' Peak V 10.07 cm/s Tricuspid Valve TR Vmax 2.7 m/s RVSP 29.3 mmHg TR Peak GR 29.3 mmHg Left Ventricle The left ventricle is normal size. There is normal left ventricular wall thickness. LVEF is 65-70%. The left ventricular diastolic function is normal. Right Ventricle The right ventricle is normal size. The right ventricular systolic function is normal. Atria The left atrium size is normal. The right atrium is mildly dilated. Aortic Valve The aortic valve is normal in structure. No aortic regurgitation is present. There is no aortic valvular stenosis. Mitral Valve The mitral valve is normal in structure. There is no evidence of significant mitral regurgitation. There is no mitral valve stenosis. Tricuspid Valve The tricuspid valve is normal in structure. There is trace tricuspid valve regurgitation noted. Pulmonic Valve The pulmonary valve is normal in structure. There is no pulmonic valvular regurgitation. Great Vessels The aortic root is normal in size. The IVC is normal in size and collapses >50% with inspiration. Pericardium There is no pericardial effusion. Conclusion LVEF is 65-70%. DICTATED BY: RICHI PAGAN MD DATE: 08/15/24 0957 ELECTRONICALLY SIGNED BY: RICHI PAGAN MD DATE: 08/15/24 5688 Assessment/Plan: Discharge diagnosis Lightheadedness,POA secondary to autonomic dysfunction, ZEYNEP Elevated troponin, POA secondary to uncontrolled hypertension, ZEYNEP Hypertension Atrial fibrillation Morbid Obesity , POA ZEYNEP Assessment: Elevated troponin, POA secondary to uncontrolled hypertension Dizziness secondary to autonomic dysfunction(patient with history of ZEYNEP) History of medication noncompliance Normal echocardiogram Noemi stress test report pending Follow with Commercial Baking Teacher in a week Please continue taking medicine as indicated and keep a blood pressure log to be taken to the physician. Hold blood pressure medications if heart rate<60/min and systolic BP < 90 or if feel dizzy . Atrial fibrillation ,POA Heart rate stable Continue Eliquis ZEYNEP,POA Morbid Obesity , POA Continue CPAP at night Orthostatic vitals negative Encourage combination of healthy life style including physical activity as tolerated . Discharge Instructions: DATE OF ADMISSION: 08/13/2024 DATE OF DISCHARGE: 08/15/2024 DISPOSITION: Home CONDITION: Medically stable CONSULTANTS: Cardiology FOLLOW UP APPOINTMENTS: Follow up with your primary care doctor in 2 to 3 days . Follow up with Cardiology PROCEDURES: IMAGING: report attached to summary MICROBIOLOGY: report attached to summary HOME MEDICATIONS: see med rec NEW MEDICATIONS: See medication reconciliation EMERGENCY INSTRUCTIONS: The patient was instructed to present to the nearest Emergency department or call 911 once their symptoms will return or worsen. Home Medications: Reported Medications Lisinopril (Lisinopril) 40 Mg Tablet, 1 TAB PO DAILY 08/14/24 Hydralazine HCl (Apresoline) 50 Mg Tab, 1 TAB PO BID 08/14/24 Amlodipine Besylate (Amlodipine Besylate) 10 Mg Tablet, 1 TAB PO DAILY 08/14/24 Metoprolol Tartrate (Lopressor 50Mg Tab) 50 Mg Tab, 1 TAB PO BID 08/14/24 Apixaban (Eliquis) 5 Mg Tablet, 1 TAB PO BID 08/14/24 Hydrochlorothiazide (Hydrochlorothiazide) 25 Mg Tablet, 1 TAB PO DAILY 08/14/24 Time spent arranging discharge: 1-30 minutes ATTESTATION BY PHYSICIAN I have seen and examined the patient. I reviewed the documentation, medical decision making, and treatment plan as noted by the resident provider above. I agree with the findings and plan of care. Lior Allen MD, ANCHU A MD August 15, 2024 14:38
--- NOTE | 2024-08-15 17:55 | NUR ---
DC NOTE DC INSTRUCTIONS AND FOLLOW UP APPOINTMENT GIVEN TO PT AND MOTHER AT BEDSIDE, VERBALIZED UNDERSTANDING. PIV AND TELE MONITOR REMOVED, CATHETER INTACT, DENIES ANY PAIN OR DISCOMFORT. PT IS WALKED DOWNSTAIRS, REFUSED TO BE TAKEN WITH WHEELCHAIR. NO COMMENTS OR CONCERNS AT THIS TIME.
[2024-08-15] MEDS ORDERED: metoPROLOL tartRATE 50 MG TAB PO SCH (21:00)
[2024-08-15] MEDS ORDERED: APIXaban 5 MG TABLET PO SCH (21:00)
[2024-08-16] MEDS ORDERED: amLODIPine 5 MG TAB PO SCH (09:00)
== END 2024-08-15 17:55 | disposition home or self-care (01) | DRG 74 ==
LOC: EDH 20:58 → EDHIP 22:56 → 4CH 08-14 01:48
PROVIDERS: ADMIT Internal Medicine; ATTEND Internal Medicine
PROC: 4A02XM4 Measurement of Cardiac Total Activity, External Approach (ICD-10-PCS; principal; 2024-08-15)
PROC: 3E073KZ Introduction of Other Diagnostic Substance into Coronary Artery, Percutaneous Approach (ICD-10-PCS; 2024-08-15)
DX: G90.9 Disorder of the autonomic nervous system, unspecified (principal); Z68.44 Body mass index [BMI] 60.0-69.9, adult; E66.01 Morbid (severe) obesity due to excess calories; I10 Essential (primary) hypertension; I48.91 Unspecified atrial fibrillation; Z51.5 Encounter for palliative care; Z79.01 Long term (current) use of anticoagulants; Z79.82 Long term (current) use of aspirin; Z91.148 Patient's other noncompliance with medication regimen for other reason; Z79.899 Other long term (current) drug therapy
CPT/HCPCS: 36415; 71045; 78452; 80048; 80053; 80305; 81001; 83735; 83880; 84100; 84484; 85025; 86140; 93005; 93017; 93306; 93356; 99285; A9500; G0378; J2785